=== PATIENT | male | born 2000 | race Caucasian/White ===

== ENCOUNTER → 2018-10-08 16:33 | Emergency (ER) | payer OTHER ==
[~2018-10-08 16:33] MED LIST: Acetaminophen TAB* 325 MG PO ONE; Ketorolac INJ* 30 MG/ML 1 ML VIAL IV PUSH ONE; Magnesium Sulfate 1 GM IV* 1 GM/100 ML BAG IV ONE; NS 0.9% 1000 ML** 1,000 ML IV ONE; Ondansetron INJ* 2 MG/ML VIAL IV ONE; Ondansetron ODT TAB* 4 MG PO ONE
--- NOTE | 2018-10-08 18:54 | ED ---
GI/ HPI - HPI Summary HPI Summary: 17 year old male presents with nausea and vomiting diarrhea for the past 2 days. He admits to generalized abdominal pain. No urinary symptoms. No cough. No sore throat. He states he just feels weak. He was sent by [facility] for IV fluids. Denies any recent travel. No one else is sick. did not eat anything different. He was given Zofran with minimal relief. No blood in his stool. No recent antibiotic use. He states she has some dizziness with standing. - History of Current Complaint Chief Complaint: EDNauseaVomitDiarrh Time Seen by Provider: 10/08/18 18:32 Stated Complaint: DEHYDRATED PER PT Pain Intensity: 5 - Allergy/Home Medications Allergies/Adverse Reactions: Allergies Allergy/AdvReac Type Severity Reaction Status Date / Time No Known Allergies Allergy Verified 10/08/18 17:09 PMH/Surg Hx/FS Hx/Imm Hx Endocrine/Hematology History: Denies: Hx Anticoagulant Therapy Respiratory History: Denies: Hx Asthma Infectious Disease History: No Infectious Disease History: Denies: Traveled Outside the [place] in Last 30 Days - Family History Known Family History: Positive: Non-Contributory - Social History Substance Use Type: Reports: None Review of Systems Negative: Fever Negative: Chest Pain Negative: Shortness Of Breath Positive: Abdominal Pain, Vomiting, Diarrhea, Nausea All Other Systems Reviewed And Are Negative: Yes Physical Exam Triage Information Reviewed: Yes Vital Signs On Initial Exam: Initial Vitals Temp Pulse Resp BP Pulse Ox 103.4 F 110 16 100/77 100 10/08/18 17:07 10/08/18 17:07 10/08/18 17:07 10/08/18 17:07 10/08/18 17:07 Vital Signs Reviewed: Yes Appearance: Positive: Well-Appearing Skin: Positive: Warm, Dry Head/Face: Positive: Normal Head/Face Inspection Eyes: Positive: Normal, EOMI, ANGELO, Conjunctiva Clear ENT: Positive: Pharynx normal Respiratory/Lung Sounds: Positive: Clear to Auscultation, Breath Sounds Present Cardiovascular: Positive: Normal, RRR Abdomen Description: Positive: Soft, Other: - mild diffuse abd tenderness Bowel Sounds: Positive: Present Musculoskeletal: Positive: Normal Neurological: Positive: Normal Psychiatric: Positive: Normal Diagnostics - Vital Signs Vital Signs Temp Pulse Resp BP Pulse Ox 10/08/18 17:07 103.4 F 110 16 100/77 100 - Laboratory Result Diagrams: 10/08/18 18:46 10/08/18 18:46 Lab Statement: Any lab studies that have been ordered have been reviewed, and results considered in the medical decision making process. Re-Evaluation - Re-Evaluation First Eval Re-Evaluation Time: 19:40 Change: Improved Comment: feeling better Second Eval Re-Evaluation Time: 21:38 Change: Improved GIGU Course/Dx - Course Course Of Treatment: 17 year old male presents with nausea and vomiting diarrhea for the past 2 days. He admits to generalized abdominal pain. No urinary symptoms. No cough. No sore throat. He states he just feels weak. He was sent by [facility] for IV fluids. Denies any recent travel. No one else is sick. did not eat anything different. He was given Zofran with minimal relief. No blood in his stool. No recent antibiotic use. He states she has some dizziness with standing. on exam mild diffuse abd tenderness. gave 3 liters of fluid and feeling better. wbc elevated at 14. crp elevated. urine normal. bun and cr elevated likely due to dehyrdation. discussed case with dr cueva. told follow up with IC. gave zofran for nausea. c diff neg. patient understand and agrees with plan. - Diagnoses Differential Diagnoses - Male: Diverticulitis, Gastroenteritis (Bacterial), Gastroenteritis (Viral) Provider Diagnoses: Nausea vomiting and diarrhea, Dehydration Discharge - Sign-Out/Discharge Documenting (check all that apply): Patient Departure Patient Received Moderate/Deep Sedation with Procedure: No - Discharge Plan Condition: Good Disposition: HOME Prescriptions: Ondansetron ODT TAB* [Zofran 4 MG Odt TAB*] 4 mg PO Q6H PRN #20 tab.odt PRN Reason: Nausea Patient Education Materials: Dehydration (ED), Acute Diarrhea (ED) Referrals: [facility] [Z.[email or web address], APPLICATION, OTHER] - Additional Instructions: Can take Zofran every 6 hours as needed for nausea Drink small amounts of fluid as tolerated When able to eat follow BRAT diet: Bananas, rice, applesauce, toast Take ibuprofen or Tylenol for pain as needed every 6 hours Follow up with [facility] Return to ED if develop any new or worsening symptoms - Billing Disposition and Condition Condition: GOOD Disposition: Home
[2018-10-08 19:06] LABS: Hematocrit 48 % (36-46); Hemoglobin 16.7 g/dL (14.0-18.0); Mean Corpuscular HGB Conc 34 g/dL (31-36); Mean Corpuscular Hemoglobin 31 pg (27-31); Mean Corpuscular Volume 88 fL (80-94); Mean Platelet Volume 8.7 fL (7.4-10.4); Platelet Count 219 10^3/uL (150-450); Red Blood Count 5.47 10^6 /uL (4.18-5.48); Red Cell Distribution Width 14 % (10.5-15); White Blood Count 14.6 10^3/uL (3.5-10.8)
[2018-10-08 19:37] LABS: ABS Basophils 0 10^3/ul (0-0.2); ABS Eosinophils 0 10^3/ul (0-0.6); ABS Lymphocytes 0.5 10^3/ul (1.0-4.8); ABS Monocytes 1.6 10^3/ul (0-0.8); ABS Neutrophils 12.5 10^3/ul (1.5-7.7); ABS Nucleated RBC 0 10^3/ul; Eosinophil % 0 %; Lymphocyte % 3.3 %; Nucleated Red Blood Cells % 0.2
[2018-10-08 19:39] LABS: Albumin 5.2 g/dL (3.2-5.2); Albumin/Globulin Ratio 1.6 (1-3); BUN/Creatinine Ratio 30.3 (8-20); C Reactive Protein 52.74 mg/L (<8.01); Calcium 9.6 mg/dL (8.6-10.3); EGFR African American 71.8 (>60); EGFR Non-African American 59.4 (>60); Globulin 3.2 g/dL (2-4); Magnesium 1.8 mg/dL (1.9-2.7); Potassium 4.2 mmol/L (3.5-5.0); Total Bilirubin 0.5 mg/dL (0.2-1.0); Total Protein 8.4 g/dL (6.4-8.9)
[2018-10-08 20:27] LABS: Influenza A Molecular NEGATIVE (Negative); Influenza B Molecular NEGATIVE (Negative)
[2018-10-08 21:20] LABS: Urine Appearance Clear; Urine Bilirubin Negative (Negative); Urine Blood Negative (Negative); Urine Color Yellow; Urine Glucose Negative (Negative); Urine Ketones Negative (Negative); Urine Nitrite Negative (Negative); Urine Protein Negative (Negative); Urine Specific Gravity 1.012 (1.010-1.030); Urine Urobilinogen Negative (Negative)
[2018-10-08 21:53] VITALS: BP 152/75
== END | disposition home or self-care (01) ==
LOC: ED 16:33
DX: R11.2 Nausea with vomiting, unspecified (principal); R19.7 Diarrhea, unspecified; E86.0 Dehydration
CPT/HCPCS: 36415; 80053; 81003; 83690; 83735; 85025; 86140; 87040; 87045; 87046; 87493; 87899; 99284; A9270-GY; J1885; J2405; J3475